=== PATIENT | female | born 1990 | race African-American/Black ===

== ENCOUNTER 2016-11-27 16:35 | Emergency (ER) | payer SELFPAY ==
[~2016-11-27] VITALS: Ht 160 cm; Wt 52.0 kg
[2016-11-27 16:58] VITALS: BP 120/63; PULSE 111; RESP 17; TEMP 98.4; O2SAT 98
[2016-11-27] MEDS ORDERED: ACETAMINOPHEN/CODEINE 300 MG/30 MG TAB PO ONE (17:45)
[2016-11-27] MEDS ORDERED: TETANUS/DIPHTHERIA TOXOID ADULT 0.5 ML VIAL IM ONE (17:45)
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
[2016-11-27] MEDS ORDERED: CLON.5 PO (18:04)
[2016-11-27 19:28] VITALS: BP 112/61; PULSE 91; RESP 18; O2SAT 99
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
[2016-11-27] MEDS ORDERED: TYLETAB34 PO ×2 (19:50→19:52)
== END 2016-11-27 20:07 | disposition home or self-care (01) ==
LOC: NEPD 16:35
DX: S02.5XXA Fracture of tooth (traumatic), initial encounter for closed fracture (principal); M54.5 Low back pain; S00.511A Abrasion of lip, initial encounter; S00.83XA Contusion of other part of head, initial encounter; R51 Headache; R55 Syncope and collapse; F17.210 Nicotine dependence, cigarettes, uncomplicated; Y08.09XA Assault by strike by other specified type of sport equipment, initial encounter; Z23 Encounter for immunization
CPT/HCPCS: 70450; 70486; 71010; 72100; 84703; 90471; 90714

== ENCOUNTER 2017-03-08 07:24 | Emergency (ER) | payer OTHER ==
[~2017-03-08] VITALS: Ht 160 cm; Wt 50.0 kg
[~2017-03-08 07:24] MED LIST: CLON.5 PO; TYLETAB34 PO
[2017-03-08 07:26] VITALS: BP 135/78; PULSE 96; RESP 14; TEMP 99.4; O2SAT 99
[2017-03-08] MEDS ORDERED: IBUP1TAB7 PO (07:46)
--- NOTE | 2017-03-08 07:57 | PD ---
HPI Chief Complaint: ENT Complaint Time Seen by Provider: 07:43 Travel History International Travel<30 days: No Contact w/Intl Traveler<30days: No Traveled to known affect area: No History of Present Illness HPI 26-year-old female presents to emergency complaining of throat pain since 5 AM this morning. Patient states that she is having trouble swallowing and talking and her pain is mainly right-sided. Patient has an occasional dry cough. Denies drooling or hot potato voice. Patient denies fever or chills. Denies sick contacts. Denies shortness of breath, chest pain, nausea, vomiting. Patient does admit to loose stools for the last 4-5 days. Denies chronic medical conditions. States she has a history of strep pharyngitis and has been treated previously. 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 PFSH Past Medical History Anxiety: Yes Depression: Yes Diminished Hearing: No ?: Not LMP: 02/22/17 Past Surgical History Surgical History: No Previous Surgery Social History Alcohol Use: Yes (2x month) Tobacco Use: Yes Substance Use: Yes (THC) Allergies-Medications (Allergen,Severity, Reaction): Coded Allergies: clindamycin (Verified Allergy, Mild, RASH AND HIVES, 03/08/17) penicillin G (Verified Allergy, Mild, Rash, 03/08/17) Reported Meds & Prescriptions Reported Meds & Active Scripts Active Reported Ibuprofen 800 Mg Tab 800 Mg PO Q6HR PRN Review of Systems Except as stated in HPI: all other systems reviewed are Neg Physical Exam Narrative GENERAL: Well-nourished, well-developed patient. SKIN: Focused skin assessment warm/dry. HEAD: Normocephalic. EYES: No scleral icterus. No injection or drainage. EARS: Bilateral pinnae and external canals appear within normal limits. Right tympanic membrane with what appears to be scar tissue without obvious air-fluid level. Left tympanic membrane- mild scarring other less apparent than the right. THROAT: Bilateral Mild pharyngeal injection with tonsillar hypertrophy. No obvious exudate. No fluctuance or bulging tonsillar pillars NECK: Supple, trachea midline. No JVD or lymphadenopathy. Mild TTP to right anterior cervical lymph nodes. CARDIOVASCULAR: Regular rate and rhythm without murmurs, gallops, or rubs. RESPIRATORY: Breath sounds equal bilaterally. No accessory muscle use. GASTROINTESTINAL: Abdomen soft, non-tender, nondistended. MUSCULOSKELETAL: No cyanosis, or edema. BACK: Nontender without obvious deformity. No CVA tenderness. Data Data Last Documented VS Vital Signs Date Time Temp Pulse Resp B/P (MAP) Pulse Ox O2 Delivery O2 Flow Rate FiO2 03/08/17 08:53 03/08/17 07:26 99.4 96 14 99 Orders Orders Group A Rapid Strep Screen (03/08/17 07:54) Influenzae A/B Antigen (03/08/17 07:54) Strep Culture (Group A) (03/08/17 08:05) Ed Discharge Order (03/08/17 08:40) Acetaminophen (Tylenol) (03/08/17 08:45) MDM Medical Decision Making Medical Screen Exam Complete: Yes Emergency Medical Condition: Yes Differential Diagnosis Peritonsillar abscess, strep pharyngitis, allergic pharyngitis, viral pharyngitis Narrative Course 26-year-old female presents to emergency complaining of throat pain since 5 AM this morning. Patient states that she is having trouble swallowing and talking and her pain is mainly right-sided. Patient has an occasional dry cough. Denies drooling or hot potato voice. Patient denies fever or chills. Denies sick contacts. Denies shortness of breath, chest pain, nausea, vomiting. Patient does admit to loose stools for the last 4-5 days. Denies chronic medical conditions. States she has a history of strep pharyngitis and has been treated previously. 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 Vital signs stable Physical exam consistent with pharyngitis. Negative strep and flu. Advised patient to use a water gargles. Continue Tylenol or Motrin per package instructions. Also recommended [id number] antihistamines for allergic component of this pharyngitis Advised on worsening symptoms including significantly decreased oral intake, uncontrolled fever. Advised patient to follow up with a primary care physician within 2-3 days. Return to the ED for worsening symptoms. Diagnosis Primary Impression: Pharyngitis Qualified Codes: J02.8 - Acute pharyngitis due to other specified organisms Referrals: [facility] Additional Instructions: Follow up with your primary care physician within 2-3 days. If your symptoms persist or worsen, return to the emergency department. Use salt water gargles for symptoms. May use Chloraseptic spray as well. Disposition: 01 DISCHARGE HOME Condition: Stable Delmis Gonzalez Mar 08, 2017 07:57
[2017-03-08] MEDS ORDERED: ACETAMINOPHEN 500 MG CPLT PO ONE (08:45)
== END 2017-03-08 08:43 | disposition home or self-care (01) ==
LOC: NEPD 07:24
DX: J02.9 Acute pharyngitis, unspecified (principal); R05 Cough; F41.9 Anxiety disorder, unspecified; F32.9 Major depressive disorder, single episode, unspecified; Z72.0 Tobacco use; Z88.0 Allergy status to penicillin; Z88.1 Allergy status to other antibiotic agents
CPT/HCPCS: 87081; 87804; 87880; 99282

== ENCOUNTER 2017-07-18 19:45 | Emergency (ER) | payer OTHER ==
[~2017-07-18] VITALS: Ht 160 cm; Wt 54.5 kg
[~2017-07-18 19:45] MED LIST changes: -CLON.5 PO; +IBUP1TAB7 PO; -TYLETAB34 PO
[2017-07-18 19:58] VITALS: BP 122/68; PULSE 98; RESP 16; TEMP 98.4; O2SAT 100
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
[2017-07-18] MEDS ORDERED: KETOROLAC TROMETHAMINE 60 MG/2 ML (IM) VIAL IM ONE (20:30)
[2017-07-18] MEDS ORDERED: AMOXICILLIN/CLAVULANATE K 875 MG TAB PO ONE (20:30)
[2017-07-18] MEDS ORDERED: TETANUS/DIPHTHERIA TOXOID ADULT 0.5 ML VIAL IM ONE (20:30)
[2017-07-18] MEDS ORDERED: IBUP1TAB7 PO (20:33)
[2017-07-18] MEDS ORDERED: MUPI2OIN TOPICAL (20:33)
[2017-07-18] MEDS ORDERED: AUGM875T3 PO (20:33)
== END 2017-07-18 21:16 | disposition home or self-care (01) ==
LOC: NEPK 19:45
DX: S21.252A Open bite of left back wall of thorax without penetration into thoracic cavity, initial encounter (principal); F41.9 Anxiety disorder, unspecified; F32.9 Major depressive disorder, single episode, unspecified; W54.0XXA Bitten by dog, initial encounter; Y92.009 Unspecified place in unspecified non-institutional (private) residence as the place of occurrence of the external cause; Z72.0 Tobacco use; Z88.1 Allergy status to other antibiotic agents
CPT/HCPCS: 96372; 99283; J1885